=== PATIENT | female | born 1990 | race Caucasian/White ===

== ENCOUNTER 2017-08-13 09:28 | Day surgery (SDC) | payer MEDICAID ==
[~2017-08-13 09:28] MED LIST: CEFAZOLIN 1 GM INJ; SUCCINYLCHOLINE CHLORIDE 100 MG/5 ML SYG IV
[2017-08-13] MEDS ORDERED: PROPOFOL 20 ML (12:41)
[2017-08-13] MEDS ORDERED: FENTAnyl 50 MCG/ML VIAL (12:42)
[2017-08-13] MEDS ORDERED: MIDAZOLAM 1 MG/ML 2 ML INJ (12:42)
[2017-08-13] MEDS ORDERED: ONDANSETRON 4 MG INJ (12:50)
[2017-08-13] MEDS ORDERED: DEXAMETHASONE 4 MG/ML 1 ML INJ (12:50)
[2017-08-13] MEDS ORDERED: METOCLOPRAMIDE 10 MG INJ (13:01)
[2017-08-13] MEDS ORDERED: OXYTOCIN 10 UNIT INJ (13:18)
[2017-08-13] MEDS ORDERED: ONDANSETRON 4 MG INJ IV (13:30)
[2017-08-13] MEDS ORDERED: IBUPROFEN 600 MG TAB PO (13:30)
[2017-08-13] MEDS ORDERED: MIDAZOLAM 1 MG/ML 2 ML INJ IV (13:30)
[2017-08-13] MEDS ORDERED: FENTAnyl 50 MCG/ML VIAL IV ×2 (13:30)
[2017-08-13] MEDS ORDERED: KETOROLAC 30 MG INJ IV (13:30)
== END 2017-08-13 15:30 | disposition home or self-care (01) ==
LOC: SDS 09:28
DX: O03.4 Incomplete spontaneous abortion without complication (principal)
CPT/HCPCS: 59812; 84703; 86850; 86900; 86901; 88305